=== PATIENT | male | born 1975 | race Caucasian/White ===

== ENCOUNTER 2016-06-07 21:03 | Emergency (ER) | payer SELFPAY ==
[~2016-06-07] VITALS: Wt 79.5 kg
[2016-06-07] MEDS ORDERED: FAMOTIDINE 20 MG INJ IV STA (22:55)
[2016-06-07] MEDS ORDERED: SOD CHLORIDE 0.9% 1,000 ML IV STA (22:55)
[2016-06-07] MEDS ORDERED: ONDANSETRON 4 MG INJ IV STA (22:55)
[2016-06-07 23:36] LABS: BASOPHILS % 0.5 % (0.0-2.0); EOSINOPHILS # 0.1 10^3/ul (0.0-0.5); EOSINOPHILS % 1.9 % (0.0-7.0); HEMATOCRIT 50.2 % (42.0-52.0); HEMOGLOBIN 17.5 g/dl (14.0-18.0); LYMPHOCYTES # 2.2 10^3/ul (0.8-2.9); LYMPHOCYTES % 41.9 % (15.0-51.0); MEAN CORPUSCULAR HEMOGLOBIN 27.8 pg (29.0-33.0); MEAN CORPUSCULAR HGB CONC 34.8 g/dl (32.0-37.0); MEAN CORPUSCULAR VOLUME 79.9 fl (82.0-101.0); MONOCYTE # 0.3 10^3/ul (0.3-0.9); MONOCYTES % 5.3 % (0.0-11.0); NEUTROPHIL # 2.7 10^3/ul (1.6-7.5); NEUTROPHILS % 50.4 % (39.0-77.0); PLATELET COUNT 249 10^3/UL (140-440); RED BLOOD COUNT 6.28 10^6/ul (4.70-6.10); RED CELL DISTRIBUTION WIDTH 15.6 % (11.5-14.5); UNCORRECTED WBC 5.4 10^3/ul (4.8-10.8); WHITE BLOOD COUNT 5.4 10^3/ul (4.8-10.8)
[2016-06-07 23:40] LABS: CONDITION 1; LH ANALYZER COMMENTS 1
[2016-06-07 23:45] LABS: ALBUMIN 5.1 g/dl (3.3-4.9); POTASSIUM 4.1 mmol/L (3.5-5.1)
[2016-06-07 23:47] LABS: BILIRUBIN,INDIRECT 0.5 mg/dl (0-1.1); BILIRUBIN,TOTAL 0.5 mg/dl (0.2-1.3); CREATININE 0.86 mg/dl (0.61-1.24)
[2016-06-07 23:48] LABS: ALBUMIN/GLOBULIN RATIO 1.24; CALCIUM 9.5 mg/dl (8.4-10.2); TOTAL PROTEIN 9.2 g/dl (6.1-8.1)
[2016-06-07 23:51] LABS: ADD UMIC YES; URINE BILIRUBIN (Dip) NEGATIVE (NEGATIVE); URINE BLOOD (Dip) TRACE (NEGATIVE); URINE COLOR LT. YELLOW (YELLOW); URINE GLUCOSE (Dip) NEGATIVE (NEGATIVE); URINE KETONES (Dip) TRACE (NEGATIVE); URINE LEUKOCYTE ESTERASE (Dip) NEGATIVE (NEGATIVE); URINE NITRITE (Dip) NEGATIVE (NEGATIVE); URINE TOTAL PROTEIN (Dip) 1+ (NEGATIVE); URINE UROBILINOGEN (Dip) 0.2 E.U./dL (0.1-1.0)
--- NOTE | 2016-06-07 23:54 | ERD ---
ER Documentation Chief Complaint Date/Time DATE: 06/07/16 TIME: 23:52 Chief Complaint biba n/v states he vomitted blood. etoh intoxication HPI This 41-year-old male presents to the emergency room for evaluation of nausea and vomiting. The patient does state that he vomited blood one time. He does state that he drinks alcohol every day and has been drinking for the past 3 weeks because he is depressed that his sister . The patient denies any homicidal or suicidal ideation. ROS All systems reviewed and are negative except as per history of present illness. PMhx/Soc Medical and Surgical Hx: pt denies Medical Hx, pt denies Surgical Hx Hx Miscellaneous Medical Probl: Yes (etoh) Hx Alcohol Use: Yes Hx Substance Use: No Hx Tobacco Use: No Smoking Status: Never smoker Physical Exam Vitals Vital Signs Date Time Temp Pulse Resp B/P Pulse Ox O2 Delivery O2 Flow Rate FiO2 06/07/16 21:05 98.0 119 22 169/84 97 Physical Exam Const: No acute distress Head: Atraumatic Eyes: Normal Conjunctiva ENT: Normal External Ears, Nose and Mouth. Neck: Full range of motion..~ No meningismus. Resp: Clear to auscultation bilaterally Cardio: Regular rate and rhythm, no murmurs Abd: Soft, non tender, non distended. Normal bowel sounds Skin: No petechiae or rashes Back: No midline or flank tenderness Ext: No cyanosis, or edema Neur: Awake and alert Psych: Normal Mood and Affect Result Diagram: 06/07/16 2310 06/07/16 2310 Results 24 hrs Laboratory Tests Test 06/07/16 23:10 Alanine Aminotransferase (ALT/SGPT) 63IU/L Albumin 5.1g/dl Albumin/Globulin Ratio 1.24 Alkaline Phosphatase 113IU/L Anion Gap 24 Aspartate Amino Transf (AST/SGOT) 46IU/L Basophils # 0.010^3/ul Basophils % 0.5% Blood Morphology Comment Blood Urea Nitrogen 10mg/dl Calcium Level 9.5mg/dl Carbon Dioxide Level 25mmol/L Chloride Level 102mmol/L Creatinine 0.86mg/dl Direct Bilirubin 0.00mg/dl Eosinophils # 0.110^3/ul Eosinophils % 1.9% Globulin 4.10g/dl Glucose Level 107mg/dl Hematocrit 50.2% Hemoglobin 17.5g/dl Indirect Bilirubin 0.5mg/dl Lipase 65U/L Lymphocytes # 2.210^3/ul Lymphocytes % 41.9% Mean Corpuscular Hemoglobin 27.8pg Mean Corpuscular Hemoglobin Concent 34.8g/dl Mean Corpuscular Volume 79.9fl Mean Platelet Volume 10.0fl Monocytes # 0.310^3/ul Monocytes % 5.3% Neutrophils # 2.710^3/ul Neutrophils % 50.4% Nucleated Red Blood Cells # 0.010^3/ul Nucleated Red Blood Cells % 0.0/100WBC Platelet Count 19330^3/UL Potassium Level 4.1mmol/L Red Blood Count 6.2810^6/ul Red Cell Distribution Width 15.6% Sodium Level 147mmol/L Total Bilirubin 0.5mg/dl Total Protein 9.2g/dl White Blood Count 5.410^3/ul Current Medications Medications (Trade) Dose Ordered Sig/Navjot Route PRN Reason Start Time Stop Time Status Last Admin Dose Admin Sodium Chloride (NS) 1,000 ml @ 1,000 mls/hr Q1H STAT IV 06/07/16 22:55 06/07/16 23:54 06/07/16 23:05 Ondansetron HCl (Zofran Inj) 4 mg ONCE STAT IV 06/07/16 22:55 06/07/16 22:56 DC 06/07/16 23:05 Famotidine (Pepcid Iv) 20 mg ONCE STAT IV 06/07/16 22:55 06/07/16 22:56 DC 06/07/16 23:04 Procedures/MDM This 41-year-old male presents to the ER for evaluation of nausea vomiting. The patient was given Zofran and Pepcid. He was given 1 L fluid. Lab work was obtained because the patient states that he vomited blood. The patient's hemoglobin is 17. His pain is controlled at this time with Pepcid and Zofran. The patient will be discharged home at this time with a prescription for Zantac , Zofran. I advised him to stop drinking alcohol and he verbalized understanding. Differential diagnoses entertained was broad with potential high acuity. Patient has been evaluated for appendicitis, cholecystitis, and other high risk medical and surgical causes of abdominal pain. Ultimately the patient's evaluation is nondiagnostic. Based on the patient's lack of risk factors, as well as the patient's clinical, laboratory, and imaging data, the patient appears to be low risk for these high risk causes of abdominal pain. Departure Diagnosis: Primary Impression: Abdominal pain Additional Impression: Alcohol abuse Condition: Stable KATELYN RUBIO DO Jun 07, 2016 23:54
[2016-06-07] MEDS ORDERED: RANI150T9 PO (23:55)
[2016-06-07] MEDS ORDERED: ONDA4TAB8 PO (23:55)
[2016-06-08 00:07] LABS: URINE RBCS 0-2 /HPF (0)
[2016-06-08 00:08] LABS: MUCUS,URINE FEW
[2016-06-08 01:07] VITALS: BP 133/88; PULSE 78; RESP 20; TEMP 98
== END 2016-06-08 01:09 | disposition home or self-care (01) ==
LOC: E/R 21:03 → EDBD 21:03 → E/R 06-08 01:09
DX: R10.9 Unspecified abdominal pain (principal); F10.10 Alcohol abuse, uncomplicated
CPT/HCPCS: 36415; 80053; 81001; 83690; 85025; 96374; 96375; 99284; J2405; J7030; 81003

== ENCOUNTER 2016-10-01 13:53 | Emergency (ER) | payer MEDICAID ==
[~2016-10-01] VITALS: Ht 157.5 cm; Wt 78.5 kg
[~2016-10-01 13:53] MED LIST: ONDA4TAB8 PO; RANI150T9 PO
[2016-10-01 13:54] VITALS: Ht 157.5 cm; Wt 78.5 kg
[2016-10-01] MEDS ORDERED: FAMOTIDINE 20 MG INJ IV STA (15:43)
[2016-10-01] MEDS ORDERED: SOD CHLORIDE 0.9% 1,000 ML IV STA (15:43)
[2016-10-01] MEDS ORDERED: ONDANSETRON 4 MG INJ IV STA (15:43)
[2016-10-01] MEDS ORDERED: LORAZEPAM 2 MG INJ IV ONE (16:00)
[2016-10-01 16:17] LABS: ADD SCAN DIFF NO
[2016-10-01 16:23] LABS: BASOPHILS % 0.6 % (0.0-2.0); EOSINOPHILS # 0.1 10^3/ul (0.0-0.5); HEMATOCRIT 45.9 % (42.0-52.0); HEMOGLOBIN 15.7 g/dl (14.0-18.0); LYMPHOCYTES # 1.5 10^3/ul (0.8-2.9); LYMPHOCYTES % 43.9 % (15.0-51.0); MEAN CORPUSCULAR HEMOGLOBIN 27.6 pg (29.0-33.0); MEAN CORPUSCULAR HGB CONC 34.2 g/dl (32.0-37.0); MEAN CORPUSCULAR VOLUME 80.8 fl (82.0-101.0); MEAN PLATELET VOLUME 11.2 fl (7.4-10.4); MONOCYTE # 0.2 10^3/ul (0.3-0.9); MONOCYTES % 6.6 % (0.0-11.0); NEUTROPHIL # 1.6 10^3/ul (1.6-7.5); NEUTROPHILS % 46.6 % (39.0-77.0); PLATELET COUNT 243 10^3/UL (140-415); RED BLOOD COUNT 5.68 10^6/ul (4.70-6.10); RED CELL DISTRIBUTION WIDTH 12.8 % (11.5-14.5); WHITE BLOOD COUNT 3.5 10^3/ul (4.8-10.8)
[2016-10-01 16:33] LABS: ADD UMIC YES; URINE BILIRUBIN (Dip) NEGATIVE (NEGATIVE); URINE BLOOD (Dip) TRACE (NEGATIVE); URINE COLOR YELLOW (YELLOW); URINE GLUCOSE (Dip) NEGATIVE (NEGATIVE); URINE KETONES (Dip) NEGATIVE (NEGATIVE); URINE LEUKOCYTE ESTERASE (Dip) NEGATIVE (NEGATIVE); URINE NITRITE (Dip) NEGATIVE (NEGATIVE); URINE UROBILINOGEN (Dip) 1.0 E.U./dL (0.1-1.0)
[2016-10-01] MEDS ORDERED: LIDOCAINE/MYLANTA 40 ML BTL PO STA (16:50)
[2016-10-01 16:52] LABS: ALBUMIN 4.8 g/dl (3.3-4.9)
[2016-10-01 16:53] LABS: POTASSIUM 3.8 mmol/L (3.5-5.1)
[2016-10-01 16:55] LABS: BACTERIA,URINE MODERATE; BILIRUBIN,INDIRECT 0.6 mg/dl (0-1.1); BILIRUBIN,TOTAL 0.6 mg/dl (0.2-1.3); CREATININE 0.84 mg/dl (0.61-1.24); MUCUS,URINE MANY; TRANSITIONAL EPI CELLS,URINE RARE; URINE RBCS 0-2 /HPF (0)
[2016-10-01 16:56] LABS: ALBUMIN/GLOBULIN RATIO 1.37; CALCIUM 9.1 mg/dl (8.4-10.2); TOTAL PROTEIN 8.3 g/dl (6.1-8.1); URINE TOTAL PROTEIN (Dip) NEGATIVE (NEGATIVE)
--- NOTE | 2016-10-01 17:45 | ERD ---
ER Documentation Chief Complaint Date/Time DATE: 10/01/16 TIME: 17:43 Chief Complaint HAS 1 WEEK ETOH USE, HAS PALPATATIONS HPI This is a 41-year-old male presents to the emergency room for evaluation of alcohol use. The patient states he has been drinking alcohol for the past week and his last drink was approximately 8 hours prior to arrival. He states that he is having some abdominal cramping, nausea, and states that he does feel his heart beating fast. The patient came to the ER today for evaluation. ROS All systems reviewed and are negative except as per history of present illness. Medications Home Meds Active Scripts Ondansetron Hcl* (Zofran*) 4 Mg Tablet, 4 MG PO Q8H Y for NAUSEA AND/OR VOMITING , #15 TAB Prov:KATELYN RUBIO DO 06/07/16 Ranitidine Hcl* (Zantac*) 150 Mg Tablet, 150 MG PO BID Y for EPIGASTRIC PAIN, # 30 TAB Prov:KATELYN RUBIO DO 06/07/16 Allergies Allergies: Coded Allergies: No Known Allergy (Unverified , 10/01/16) PMhx/Soc History of Surgery: No Anesthesia Reaction: No Hx Neurological Disorder: No Hx Respiratory Disorders: No Hx Cardiac Disorders: No Hx Psychiatric Problems: No Hx Miscellaneous Medical Probl: Yes (etoh) Hx Alcohol Use: Yes Hx Substance Use: No Hx Tobacco Use: No Smoking Status: Never smoker Physical Exam Vitals Vital Signs Date Time Temp Pulse Resp B/P Pulse Ox O2 Delivery O2 Flow Rate FiO2 10/01/16 16:43 98.5 115 18 135/88 97 Room Air 10/01/16 13:54 98.5 129 18 141/89 97 Physical Exam INITIAL VITAL SIGNS: Reviewed by me GENERAL: The patient is well developed and appropriate for usual state of health in no apparent distress HEENT: Dry mucous membranes, pupils equal, round, and reactive to light. EOMI. There is no scleral icterus. NECK: C-spine is soft and supple, there is no meningismus. There is no cervical lymphadenopathy. LUNGS: Clear to auscultation bilaterally. There are no rales, wheezes or rhonchi. HEART: Tachycardic, no murmurs, clicks, rubs or gallops. ABDOMEN: Epigastric tenderness to palpation, soft, non-tender, non-distended. There are bowel sounds in all four quadrants. No rebound or guarding. EXTREMITIES: There is no peripheral cyanosis or edema. No focal swelling or erythema. NEUROLOGICAL: The patient moves all four extremities with 5/5 strength. Cranial nerves II - XII are intact. Normal gait. Alert and oriented SKIN: There is no apparent rash or petechiae. HEME/LYMPHATIC: There is no evidence of excessive bruising or lymphedema. PSYCHIATRIC: The patient does not appear anxious or depressed. Result Diagram: 10/01/16 1615 10/01/16 1615 Results 24 hrs Laboratory Tests Test 10/01/16 16:15 White Blood Count 3.510^3/ul Red Blood Count 5.6810^6/ul Hemoglobin 15.7g/dl Hematocrit 45.9% Mean Corpuscular Volume 80.8fl Mean Corpuscular Hemoglobin 27.6pg Mean Corpuscular Hemoglobin Concent 34.2g/dl Red Cell Distribution Width 12.8% Platelet Count 06157^3/UL Mean Platelet Volume 11.2fl Neutrophils % 46.6% Lymphocytes % 43.9% Monocytes % 6.6% Eosinophils % 2.0% Basophils % 0.6% Nucleated Red Blood Cells % 0.0/100WBC Neutrophils # 1.610^3/ul Lymphocytes # 1.510^3/ul Monocytes # 0.210^3/ul Eosinophils # 0.110^3/ul Basophils # 0.010^3/ul Nucleated Red Blood Cells # 0.010^3/ul Urine Color YELLOW Urine Clarity CLEAR Urine pH 6.0 Urine Specific [place] >=1.030 Urine Ketones NEGATIVE Urine Nitrite NEGATIVE Urine Bilirubin NEGATIVE Urine Urobilinogen 1.0 E.U./dL Urine Leukocyte Esterase NEGATIVE Urine Microscopic RBC 0-2/HPF Urine Microscopic WBC NONE SEEN/HPF Urine Transitional Epithelial Cells RARE Urine Bacteria MODERATE Urine Mucus MANY Urine Hemoglobin TRACE Urine Glucose NEGATIVE% Urine Total Protein NEGATIVE Sodium Level 144mmol/L Potassium Level 3.8mmol/L Chloride Level 103mmol/L Carbon Dioxide Level 23mmol/L Anion Gap 22 Blood Urea Nitrogen 9mg/dl Creatinine 0.84mg/dl Glucose Level 90mg/dl Calcium Level 9.1mg/dl Total Bilirubin 0.6mg/dl Direct Bilirubin 0.00mg/dl Indirect Bilirubin 0.6mg/dl Aspartate Amino Transf (AST/SGOT) 57IU/L Alanine Aminotransferase (ALT/SGPT) 61IU/L Alkaline Phosphatase 104IU/L Total Protein 8.3g/dl Albumin 4.8g/dl Globulin 3.50g/dl Albumin/Globulin Ratio 1.37 Lipase 56U/L Current Medications Medications (Trade) Dose Ordered Sig/Navjot Route PRN Reason Start Time Stop Time Status Last Admin Dose Admin Sodium Chloride (NS) 1,000 ml @ 1,000 mls/hr Q1H STAT IV 10/01/16 15:43 10/01/16 16:42 DC 10/01/16 16:20 Ondansetron HCl (Zofran Inj) 4 mg ONCE STAT IV 10/01/16 15:43 10/01/16 15:44 DC 10/01/16 16:15 Famotidine (Pepcid Iv) 20 mg ONCE STAT IV 10/01/16 15:43 10/01/16 15:44 DC 10/01/16 16:15 Lorazepam (Ativan) 1 mg ONCE ONCE IV 10/01/16 16:00 10/01/16 16:01 DC 10/01/16 16:15 Miscellaneous Medication (Gi Cocktail (2)) 40 ml ONCE STAT PO 10/01/16 16:50 10/01/16 16:51 DC 10/01/16 16:59 Procedures/MDM This 41-year-old male presents to the ER for evaluation of abdominal cramping, and alcohol use. When I evaluated this patient he was tachycardic. I did obtain lab work which does not show any signs of pancreatitis or severe dehydration. The patient was given Zofran, Ativan, and 1/2 L of fluids. Upon my reevaluation he is sleeping comfortably. The patient was complaining of some abdominal pain and was given a GI cocktail. Patient states that his abdominal pain is improved after the GI cocktail and he will be discharged home at this time with a prescription for Zantac as he likely suffering from alcoholic gastritis. No signs of delirium tremens at this time Departure Diagnosis: Primary Impression: Alcoholic gastritis Additional Impression: Alcohol abuse Condition: Stable MICHAELOSWALDO CHACKOELIJAH LAWSON October 01, 2016 17:45
[2016-10-01] MEDS ORDERED: ONDA4TAB8 PO (17:46)
[2016-10-01] MEDS ORDERED: RANI150T9 PO (17:46)
[2016-10-01 18:06] VITALS: BP 136/86; PULSE 88; RESP 16; TEMP 98.5
== END 2016-10-01 18:07 | disposition home or self-care (01) ==
LOC: E/R 13:53
DX: K29.20 Alcoholic gastritis without bleeding (principal); F10.10 Alcohol abuse, uncomplicated; R11.0 Nausea
CPT/HCPCS: 36415; 80053; 81001; 83690; 85025; 93005; 96374; 96375; J2060; J2405; J7030; Z7502; Z7610

== ENCOUNTER 2016-10-24 15:55 | Emergency (ER) | payer MEDICAID ==
[~2016-10-24] VITALS: Ht 170.2 cm; Wt 77.3 kg
[2016-10-24 16:00] VITALS: Ht 170.2 cm; Wt 77.3 kg
[2016-10-24] MEDS ORDERED: SOD CHLORIDE 0.9% 1,000 ML IV STA (16:10)
[2016-10-24] MEDS ORDERED: ONDANSETRON 4 MG INJ IV STA (16:10)
[2016-10-24] MEDS ORDERED: FAMOTIDINE 20 MG INJ IV STA (16:10)
--- NOTE | 2016-10-24 16:15 | ERD ---
ER Documentation Chief Complaint Date/Time DATE: 10/24/16 TIME: 16:12 Chief Complaint N/V x2 days with epigastric pain and abdominal pain. HPI 41 yo male comes to the ER for 2 day history of epigastric abdominal pain, with nausea and vomiting. Patient states it starts in the epigastrum and radiates to the chest, sharp. Patient states that he drank up to 10 beers on friday and Friday night. He reports up to 5 episodes of nonbloody nonbilious vomiting. No fever, shortness of breath. ROS All systems reviewed and are negative except as per history of present illness. Medications Home Meds Active Scripts Ondansetron (Ondansetron Odt) 4 Mg Tab.rapdis, 4 MG PO Q6H Y for NAUSEA AND/OR VOMITING, #10 TAB Prov:CHRIS MATA PA-C 10/24/16 Ranitidine Hcl* (Zantac*) 150 Mg Tablet, 150 MG PO BID Y for EPIGASTRIC PAIN, # 30 TAB Prov:CHRIS MATA PA-C 10/24/16 Omeprazole* (Omeprazole*) 20 Mg Capsule.dr, 20 MG PO DAILY, #30 Prov:CHRIS MATA PA-C 10/24/16 Ondansetron Hcl* (Zofran*) 4 Mg Tablet, 4 MG PO Q8H Y for NAUSEA AND/OR VOMITING , #12 TAB Prov:KATELYN RUBIO DO 10/01/16 Ranitidine Hcl* (Zantac*) 150 Mg Tablet, 150 MG PO BID Y for EPIGASTRIC PAIN, # 30 TAB Prov:KATELYN RUBIO DO 10/01/16 Ondansetron Hcl* (Zofran*) 4 Mg Tablet, 4 MG PO Q8H Y for NAUSEA AND/OR VOMITING , #15 TAB Prov:KATELYN RUBIO DO 06/07/16 Ranitidine Hcl* (Zantac*) 150 Mg Tablet, 150 MG PO BID Y for EPIGASTRIC PAIN, # 30 TAB Prov:KATELYN RUBIO DO 06/07/16 Allergies Allergies: Coded Allergies: No Known Allergy (Unverified , 10/01/16) PMhx/Soc History of Surgery: No Anesthesia Reaction: No Hx Neurological Disorder: No Hx Respiratory Disorders: No Hx Cardiac Disorders: No Hx Psychiatric Problems: No Hx Miscellaneous Medical Probl: Yes (etoh) Hx Alcohol Use: Yes Hx Substance Use: No Hx Tobacco Use: No Physical Exam Vitals Vital Signs Date Time Temp Pulse Resp B/P Pulse Ox O2 Delivery O2 Flow Rate FiO2 10/24/16 16:00 99.0 108 14 168/98 96 Physical Exam Const: in mild distress due to pain Head: Atraumatic Eyes: Normal Conjunctiva ENT: Normal External Ears, Nose and Mouth. Neck: Full range of motion..~ No meningismus. Resp: Clear to auscultation bilaterally Cardio: Regular rate and rhythm, no murmurs Abd: Soft,TTP in epigastric region, negative hall's sign, non distended. Normal bowel sounds Skin: No petechiae or rashes Back: No midline or flank tenderness Ext: No cyanosis, or edema Neur: Awake and alert Psych: Normal Mood and Affect Result Diagram: 10/24/16 1620 10/24/16 1620 Results 24 hrs Laboratory Tests Test 10/24/16 16:20 White Blood Count 6.910^3/ul Red Blood Count 5.4710^6/ul Hemoglobin 15.3g/dl Hematocrit 43.8% Mean Corpuscular Volume 80.1fl Mean Corpuscular Hemoglobin 28.0pg Mean Corpuscular Hemoglobin Concent 34.9g/dl Red Cell Distribution Width 12.9% Platelet Count 18304^3/UL Mean Platelet Volume 11.2fl Neutrophils % 73.3% Lymphocytes % 19.3% Monocytes % 6.1% Eosinophils % 0.6% Basophils % 0.6% Nucleated Red Blood Cells % 0.0/100WBC Neutrophils # 5.110^3/ul Lymphocytes # 1.310^3/ul Monocytes # 0.410^3/ul Eosinophils # 0.010^3/ul Basophils # 0.010^3/ul Nucleated Red Blood Cells # 0.010^3/ul Urine Color YELLOW Urine Clarity CLEAR Urine pH 6.5 Urine Specific [place] 1.025 Urine Ketones 40 Urine Nitrite NEGATIVE Urine Bilirubin 2+ Urine Ictotest NEGATIVE Urine Urobilinogen 1.0 E.U./dL Urine Leukocyte Esterase NEGATIVE Urine Microscopic RBC 0-2/HPF Urine Microscopic WBC NONE SEEN/HPF Urine Hemoglobin TRACE Urine Glucose NEGATIVE% Urine Total Protein 2+ Sodium Level 139mmol/L Potassium Level 3.5mmol/L Chloride Level 102mmol/L Carbon Dioxide Level 25mmol/L Anion Gap 16 Blood Urea Nitrogen 11mg/dl Creatinine 0.91mg/dl Glucose Level 93mg/dl Calcium Level 9.9mg/dl Total Bilirubin 2.0mg/dl Direct Bilirubin 0.00mg/dl Indirect Bilirubin 2.0mg/dl Aspartate Amino Transf (AST/SGOT) 66IU/L Alanine Aminotransferase (ALT/SGPT) 64IU/L Alkaline Phosphatase 102IU/L Total Protein 8.3g/dl Albumin 5.2g/dl Globulin 3.10g/dl Albumin/Globulin Ratio 1.67 Lipase 39U/L Current Medications Medications (Trade) Dose Ordered Sig/Navjot Route PRN Reason Start Time Stop Time Status Last Admin Dose Admin Sodium Chloride (NS) 1,000 ml @ 1,000 mls/hr Q1H STAT IV 10/24/16 16:10 10/24/16 17:09 DC 10/24/16 16:22 Ondansetron HCl (Zofran Inj) 4 mg ONCE STAT IV 10/24/16 16:10 10/24/16 16:12 DC 10/24/16 16:22 Famotidine (Pepcid Iv) 20 mg ONCE STAT IV 10/24/16 16:10 10/24/16 16:12 DC 10/24/16 16:22 Pantoprazole (Protonix Iv) 40 mg ONCE ONCE IV 10/24/16 16:30 10/24/16 16:31 DC 10/24/16 16:22 DIAGNOSTIC IMAGING REPORT Patient: SABRA DAVENPORT : 1975 Age: 41 Sex: M [id number] DOS: 10/24/16 0000 Ordering MD: CHRIS MATA PA-C Location: E Room/Bed: PROCEDURE: US Abdomen. CLINICAL INDICATION: 41-year-old male with epigastric pain. TECHNIQUE: Multiple real-time images were acquired of the patient's abdomen and retroperitoneum utilizing a high resolution transducer. COMPARISON: None FINDINGS: The liver is echogenic and measures 16.5 cm in length. No hepatic mass is identified. The gallbladder wall measures 1.2 mm which is normal. There is no evidence of cholelithiasis. The common bile duct measures 3.1 mm. The right kidney measures 10.2 cm in length. Is unremarkable. The pancreas is poorly visualized. Portions of the head and proximal body of the pancreas are visualized with no pseudocyst identified. There is a high index of suspicion for pancreatitis, CT scan can be utilized for more detailed evaluation. IMPRESSION: 1. Hepatomegaly. Increased echogenicity of the liver is noted and most commonly as a result of fatty infiltration. Steatohepatitis, vacuolar degeneration and cirrhosis of the liver are other causes. 2. Evaluation of the pancreas is limited. There is a high index of suspicion for pancreatitis, a CT scan can be performed for further evaluation. (A triple phase CT scan will result in the most detailed characterization but results in more radiation.) RPTAT:AAJJ Juan Chauhan, Physician Date Time Electronically viewed and signed by Juan Chauhan Physician on 10/24/2016 17:53 JM/ CC: CHRIS MATA PA-C Procedures/MDM ED COURSE: IV line established, pt had labs and urine obtained. He was given protonix 40mg , pepcid 20mg IV, zofran 4mg IV, and NS 1L IV. MDM: 41 yo male comes in with epigastric abdominal pain for the past 2 days with nausea vomiting, likely gastritis versus GERD, patient's workup was negative for pancreatitis, acute hepatobiliary process including acute cholecystitis, choledocholithiasis. He did have increased bilirubin that may be reactive from vomiting, gallbladder ultrasound was also done, there is no evidence of gallstones, likely hepatic steatosis seen. White count was normal, he does not have any febrile illness. I believe his symptoms are likely from his recent history of drinking, however no elevated lipase to indicate pancreatitis or admission. He was given Protonix, Pepcid, Zofran and fluids emergency department feels much better at this time. Patient was given dietary precautions, will be given ranitidine, Zofran and omeprazole for home, and was asked to recheck with his primary care doctor. Departure Diagnosis: Primary Impression: Abdominal pain Condition: Good CHRIS MATA PA-C Oct 24, 2016 16:15
[2016-10-24] MEDS ORDERED: PANTOPRAZOLE 40 MG INJ IV ONE (16:30)
[2016-10-24 16:33] LABS: ADD SCAN DIFF NO
[2016-10-24 16:35] LABS: BASOPHILS % 0.6 % (0.0-2.0); EOSINOPHILS % 0.6 % (0.0-7.0); HEMATOCRIT 43.8 % (42.0-52.0); HEMOGLOBIN 15.3 g/dl (14.0-18.0); LYMPHOCYTES # 1.3 10^3/ul (0.8-2.9); LYMPHOCYTES % 19.3 % (15.0-51.0); MEAN CORPUSCULAR HGB CONC 34.9 g/dl (32.0-37.0); MEAN CORPUSCULAR VOLUME 80.1 fl (82.0-101.0); MEAN PLATELET VOLUME 11.2 fl (7.4-10.4); MONOCYTE # 0.4 10^3/ul (0.3-0.9); MONOCYTES % 6.1 % (0.0-11.0); NEUTROPHIL # 5.1 10^3/ul (1.6-7.5); NEUTROPHILS % 73.3 % (39.0-77.0); PLATELET COUNT 272 10^3/UL (140-415); RED BLOOD COUNT 5.47 10^6/ul (4.70-6.10); RED CELL DISTRIBUTION WIDTH 12.9 % (11.5-14.5); WHITE BLOOD COUNT 6.9 10^3/ul (4.8-10.8)
[2016-10-24 16:36] LABS: ADD UMIC YES; UR BILIRUBIN (Dip) 2+ (NEGATIVE); UR BLOOD (Dip) TRACE (NEGATIVE); UR CLARITY CLEAR (CLEAR); UR COLOR YELLOW (YELLOW); UR GLUCOSE (Dip) NEGATIVE (NEGATIVE); UR KETONES (Dip) 40 (NEGATIVE); UR LEUKOCYTE ESTERASE (Dip) NEGATIVE (NEGATIVE); UR NITRITE (Dip) NEGATIVE (NEGATIVE); UR TOTAL PROTEIN (Dip) 2+ (NEGATIVE); UR UROBILINOGEN (Dip) 1.0 E.U./dL (0.1-1.0)
[2016-10-24 16:54] LABS: ICTOTEST NEGATIVE (NEGATIVE); URINE RBCS 0-2 /HPF (0)
[2016-10-24 16:56] LABS: ALBUMIN 5.2 g/dl (3.3-4.9); ALBUMIN/GLOBULIN RATIO 1.67; CALCIUM 9.9 mg/dl (8.4-10.2); CREATININE 0.91 mg/dl (0.61-1.24); POTASSIUM 3.5 mmol/L (3.5-5.1); TOTAL PROTEIN 8.3 g/dl (6.1-8.1)
--- NOTE | 2016-10-24 17:54 | RADRPT ---
PROCEDURE: US Abdomen. CLINICAL INDICATION: 41-year-old male with epigastric pain. TECHNIQUE: Multiple real-time images were acquired of the patient's abdomen and retroperitoneum ut ilizing a high resolution transducer. COMPARISON: None FINDINGS: The liver is echogenic and measures 16.5 cm in length. No hepatic mass is identified. The gallblad kaylee wall measures 1.2 mm which is normal. There is no evidence of cholelithiasis. The common bile duct measures 3.1 mm. The right kidney measures 10.2 cm in length. Is unremarkable. The pancreas is poorly visualized. Portions of the head and proximal body of the pancreas are visua lized with no pseudocyst identified. There is a high index of suspicion for pancreatitis, CT scan c an be utilized for more detailed evaluation. IMPRESSION: 1. Hepatomegaly. Increased echogenicity of the liver is noted and most commonly as a result of fatt y infiltration. Steatohepatitis, vacuolar degeneration and cirrhosis of the liver are other causes. 2. Evaluation of the pancreas is limited. There is a high index of suspicion for pancreatitis, a C T scan can be performed for further evaluation. (A triple phase CT scan will result in the most det tori characterization but results in more radiation.) RPTAT:AAJJ Physician Edward Date Time Electronically viewed and signed by Physician Edward on 10/24/2016 17:53 ARELI/
[2016-10-24] MEDS ORDERED: OMEP20CA16 PO (18:03)
[2016-10-24] MEDS ORDERED: ONDA4TAB14 PO (18:03)
[2016-10-24] MEDS ORDERED: RANI150T9 PO (18:03)
== END 2016-10-24 18:33 | disposition home or self-care (01) ==
LOC: FTE 15:55
DX: R10.13 Epigastric pain (principal)
CPT/HCPCS: 76705; 80053; 81001; 83690; 85025; C9113; J2405; J7030; Z7610; 36415; 96374; 96375